=== PATIENT | male | born 2000 | race Caucasian/White ===

== ENCOUNTER 2022-06-22 21:28 | Emergency (ER) | payer MEDICAID ==
[~2022-06-22] VITALS: Ht 172.7 cm; Wt 63.8 kg
[2022-06-22 21:29] VITALS: BP 129/69
== END 2022-06-22 22:04 | disposition left against medical advice (07) ==
LOC: M ED 21:28
DX: Z53.21 Procedure and treatment not carried out due to patient leaving prior to being seen by health care provider (principal)

== ENCOUNTER 2022-08-17 15:21 | Emergency (ER) | payer MEDICAID, OTHER ==
[~2022-08-17] VITALS: Ht 172.7 cm; Wt 62.3 kg
[2022-08-17 19:53] LABS: BASO # 0.1 10^3/uL (0.0-0.2); BASO % 0.8 % (0.0-1.0); EOS # 0.2 10^3/uL (0.0-0.5); EOS % 2.4 % (0.0-3.0); HEMATOCRIT 43.4 % (42.0-52.0); HEMOGLOBIN 15.1 g/dl (13.5-17.5); LYMPH # 1.7 10^3/uL (1.5-5.0); LYMPH % 26.6 % (24.0-44.0); MEAN CORPUSCULAR HEMOGLOBIN 30.4 pg (27.0-33.0); MEAN CORPUSCULAR HGB CONC 34.8 g/dl (32.0-36.5); MEAN CORPUSCULAR VOLUME 87.5 fl (80.0-96.0); MONO # 0.3 10^3/uL (0.0-0.8); MONO % 5.5 % (2.0-8.0); NEUTROPHILS % 64.5 % (36.0-66.0); PLATELET COUNT, AUTOMATED 222 10^3/uL (150-450); RED BLOOD COUNT 4.96 10^6/uL (4.30-6.10); WHITE BLOOD COUNT 6.2 10^3/uL (4.0-10.0)
[2022-08-17 20:24] LABS: CK-MB VALUE MASS < 1.0 NG/ML (<3.6)
[2022-08-17 20:26] LABS: CPK CREATINE PHOSPHOKINASE 72 U/L (46-171); MB/CK RELATIVE INDEX 1.38 (< OR =4)
[2022-08-17] MEDS ORDERED: HOLTER MONITOR XX (20:46)
[2022-08-17 21:00] VITALS: BP 107/57
== END 2022-08-17 21:17 | disposition home or self-care (01) ==
LOC: M ED 15:21
DX: R00.2 Palpitations (principal); R00.1 Bradycardia, unspecified; I49.9 Cardiac arrhythmia, unspecified; I45.10 Unspecified right bundle-branch block; F17.200 Nicotine dependence, unspecified, uncomplicated; F10.10 Alcohol abuse, uncomplicated; Z88.1 Allergy status to other antibiotic agents

== ENCOUNTER 2022-12-03 11:29 | Emergency (ER) | payer OTHER, SELFPAY ==
[~2022-12-03] VITALS: Ht 172.7 cm; Wt 67.7 kg
[~2022-12-03 11:29] MED LIST: HOLTER MONITOR XX
[2022-12-03] MEDS ORDERED: FLUORESCEIN OPHTH 1MG STRIP OS ONE (13:35)
[2022-12-03] MEDS ORDERED: TETRACAINE 0.5% OPHTH SOLN 4ML OS ONE (13:40)
[2022-12-03] MEDS ORDERED: BOOSTRIX VACCINE (TETANUS/DIPHTH/ACEL. PERTUSSIS) 0.5ML SYR IM ONE (13:40)
[2022-12-03 15:18] VITALS: BP 123/75
== END 2022-12-03 15:20 | disposition home or self-care (01) ==
LOC: M ED 11:29
DX: T15.12XA Foreign body in conjunctival sac, left eye, initial encounter (principal); Y92.009 Unspecified place in unspecified non-institutional (private) residence as the place of occurrence of the external cause; Y93.89 Activity, other specified; Y99.8 Other external cause status; R51.9 Headache, unspecified; Z88.1 Allergy status to other antibiotic agents